=== PATIENT | female | born 1960 | race Caucasian/White ===

== ENCOUNTER → 2021-09-23 | Outpatient (CLI) | payer BC ==
--- NOTE | 2021-09-23 23:36 | KCIC ---
Study: XR KNEE_RT 1-2 VIEWS Indication: Right knee pain. Comparison: None. Findings: Mild medial compartment joint space narrowing. No large osteophytes. No fracture or traumatic malalig nment. No appreciable joint effusion. Impression: Minimal arthrosis. Mild medial femorotibial compartment joint space narrowing. Electronically signed by: QIAN ACEVEDO MD (09/23/2021 11:34 PM) [facility]
== END ==
LOC: KCIC 11:25
PROVIDERS: ATTEND Family Medicine
DX: M17.11 Unilateral primary osteoarthritis, right knee (principal)
CPT/HCPCS: 73560